=== PATIENT | female | born 1955 | race Caucasian/White ===

== ENCOUNTER 2017-12-16 09:33 | Emergency (ER) | payer OTHER ==
[2017-12-16] MEDS ORDERED: HYDROcodone/Acetaminophen 5/325 mg Tablet ONE ×2 (09:52→09:57)
--- NOTE | 2017-12-16 10:36 | RAD ---
THREE VIEWS OF THE RIGHT WRIST: DATE: 12/16/17. COMPARISON: None. HISTORY: Fall last night, wrist fracture. FINDINGS: There is an impacted fracture of the distal right radius. The patient is comminuted and the distal f racture fragment is displaced posteriorly by 7 mm. No associated ulnar fracture. No evidence for di slocation. Age-indeterminate fracture also noted at the base of the 5th metacarpal. IMPRESSION: 1. Comminuted impacted displaced fracture of the distal right radius. 2. Age-indeterminate, probably remote, fracture at the base of the 5th metacarpal. POS: [facility]
== END 2017-12-16 10:31 | disposition home or self-care (01) ==
LOC: ERS 09:33
DX: S52.501A Unspecified fracture of the lower end of right radius, initial encounter for closed fracture (principal); E03.9 Hypothyroidism, unspecified; I10 Essential (primary) hypertension; J45.909 Unspecified asthma, uncomplicated; Z79.51 Long term (current) use of inhaled steroids; Z79.899 Other long term (current) drug therapy; W19.XXXA Unspecified fall, initial encounter
CPT/HCPCS: 29125

== ENCOUNTER 2017-12-21 06:01 | Day surgery (SDC) | payer OTHER ==
[2017-12-20 12:09] VITALS: BMI 45.7
[2017-12-21] MEDS ORDERED: Lidocaine 1% (PF) 30 ML VIAL ONE (06:19)
[2017-12-21] MEDS ORDERED: Fentanyl 100 MCG/2 ML VIAL ONE ×2 (06:19→09:39)
[2017-12-21] MEDS ORDERED: Midazolam HCl 2 mg/2 ml Vial ONE (06:19)
[2017-12-21] MEDS ORDERED: CEFAZOLIN/Water 2 GM/20 ML SYRINGE ONE (06:47)
[2017-12-21] MEDS ORDERED: Ondansetron HCl/PF 4 MG/2 ML Vial IVP PRN (07:15)
[2017-12-21] MEDS ORDERED: Zolpidem Tartrate 5 MG TAB PO PRN (07:15)
[2017-12-21] MEDS ORDERED: Ropivacaine 0.2% 550 ML 550 ML NERVE BLCK SCH (07:15)
[2017-12-21] MEDS ORDERED: Promethazine HCl 25 MG/ML VIAL IM PRN (07:15)
[2017-12-21] MEDS ORDERED: Meperidine HCl/PF 25 MG/ML VIAL ONE (08:59)
--- NOTE | 2017-12-21 09:18 | RAD ---
INTRAOPERATIVE FLUOROSCOPIC IMAGES RIGHT WRIST: 12/21/2017 HISTORY: Right wrist fracture. Internal fixation. COMPARISON: 12/16/2017 FINDINGS: Intraoperative fluoroscopy was provided for Dr. Barbosa. Image demonstrates a volar plate and screw s transfixing a distal right radial metaphyseal fracture, with improvement in alignment of fracture f ragments. FLUOROSCOPY TIME: 17.9 seconds. TOTAL DOSE: 0.38 mGy IMPRESSION: Internal fixation of distal right radial metaphyseal fracture. Correlation with intraoperative findings is recommended. POS: [facility]
[2017-12-21] MEDS ORDERED: Ropivacaine 0.2% HCl/PF (40 MG/20 ML VIAL) ONE (09:26)
[2017-12-21] MEDS ORDERED: Ropivacaine 0.5% HCl/PF (150 MG/30 ML VIAL) ONE ×2 (09:26→10:16)
[2017-12-21] MEDS ORDERED: Dexamethasone 20 MG/5 ML VIAL ONE (09:43)
[2017-12-21] MEDS ORDERED: PROPOFOL 200 MG/20 ML VIAL ONE (09:43)
[2017-12-21] MEDS ORDERED: Ondansetron HCl/PF 4 MG/2 ML Vial ONE (09:43)
[2017-12-21] MEDS ORDERED: Ketorolac Tromethamine 30 MG/ML VIAL ONE (09:43)
--- NOTE | 2017-12-21 10:44 | OP ---
DATE OF SURGERY: 12/20/2017 PREOPERATIVE DIAGNOSIS: Right extraarticular distal radius fracture (less than 3 parts). POSTOPERATIVE DIAGNOSIS: Right extraarticular distal radius fracture (less than 3 parts). SURGICAL PROCEDURE: Open reduction internal fixation right distal radius. ANESTHESIA: General. SURGEON: Sebastian Barbosa M.D. [employer] COUNTERPERSON: CAROL Thakkar. TOURNIQUET TIME: Approximately 45 minutes at 250 mmHg. IMPLANTS: Synthes 2.4 mm variable angle LCP 2 column volar distal radius plate. COMPLICATIONS: None. DRAINS: None. SPECIMEN: None. OUTCOME: Near anatomic alignment. INDICATIONS: The patient is a 62-year-old lady, status post fall on outstretched hand sustaining a d isplaced right distal radius fracture. The patient's fracture was still dorsally displaced and angul ated and there is dorsal comminution. After discussion with patient including risks and benefits, we decided to proceed with an attempt at closed reduction with possible pinning versus open reduction i nternal fixation with plate stabilization if her fracture is found to be unstable. Informed consent has been obtained. I believe all questions answered. DESCRIPTION OF PROCEDURE: The patient was brought to the operating room and a timeout was performed followed by induction of general anesthesia. Next, a closed reduction maneuver was performed. This resulted in near anatomic alignment; however, the fracture was found to be very unstable due to the d orsal comminution. As such, it was opted to proceed with open reduction internal fixation. A steril e prep and drape was then performed of the right upper extremity. The limb was then exsanguinated wi th Esmarch bandage, tourniquet inflated to 250 mmHg. A volar radial skin incision was made. Dissect ion was then carried between the flexor carpi radialis and brachioradialis taking care to identify an d reflect the neurovascular bundle to the radial side of the forearm. The pronator quadratus was the n encountered. This was released off of the radial border of the distal radius and reflected to the midline. At this point, the fracture could be clearly visualized. An elevator was used just to free soft tissue from the fracture gap and then the fracture was reduced and held in place provisionally with a K-wire passed from the tip of the radial styloid obliquely across the fracture and into the mo re proximal radial diaphysis. Next, a Synthes 2.4 mm variable angle LCP volar radial plate was appli ed to the volar cortex of the radius. This was then held in place once appropriately positioned with a cortical screw in the longitudinal limb of the plate. AP lateral C-arm images were then obtained to confirm appropriate positioning of the hardware and reduction of the fracture. Next, three lockin g screws were passed through the horizontal limb of the plate in standard fashion and then two additi onal cortical screws placed in the longitudinal limb of the plate securely fixing the plate to the di aphysis of the radius and stabilizing the distal radial metaphyseal fragment. At this point, final A P, lateral C-arm images were taken and saved for the patient's permanent medical record. The wound t hen irrigated with bulb syringe and closed in layers with 2-0 Vicryl followed by 3-0 nylon. A Xerofo rm gauze, Webril, and sugar tong fiberglass splint was applied to the arm. Tourniquet was let down a t completion of dressing, and then the patient was transferred to recovery room in stable condition. There were no complications and she tolerated the procedure well.
== END 2017-12-21 12:23 | disposition home or self-care (01) ==
LOC: SDC 06:01
PROVIDERS: ATTEND Orthopaedic Surgery
PROC: 0PSH04Z Reposition Right Radius with Internal Fixation Device, Open Approach (ICD-10-PCS; principal; 2017-12-21)
DX: S52.551A Other extraarticular fracture of lower end of right radius, initial encounter for closed fracture (principal); I10 Essential (primary) hypertension; Z79.899 Other long term (current) drug therapy; W18.30XA Fall on same level, unspecified, initial encounter
CPT/HCPCS: 76001; 96374; A4306; C1713; J1100; J1885; J2001; J2175; J2250; J2405; J2704; J2795; J3010

== ENCOUNTER 2018-07-05 23:25 | Inpatient (IN) | payer OTHER, BC ==
[~2018-07-05 23:25] MED LIST: ISOVUE-370 76%-LOCM 1 ML ONE
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
[2018-07-06 00:03] LABS: #Basophils 0.1 thou/uL (0.0-0.2); #Eosinphils 0.2 thou/uL (0.0-0.7); #Lymphocytes 1.6 thou/uL (1.20-3.40); #Monocytes 0.9 thou/uL (0.11-0.59); #Neutrophils 11.5 thou/uL (1.40-6.50); %Basophils 0.5 % (0.0-1.0); %Eosinophils 1.5 % (0.0-10.0); %Lymphocytes 11.3 % (21.0-51.0); %Monocytes 6.3 % (0.0-10.0); %Neutrophils 80.4 % (42.0-75.0); Hemoglobin 13.7 g/dL (12.0-16.0); Mean Corpuscular HGB CONC 33.2 g/dL (32.0-36.0); Mean Corpuscular Hemoglobin 33.3 pg (27.0-31.0); Mean Platelet Volume 7.1 fL (7.4-10.4); Platelet Count 318 thou/uL (130-400); RBC Distribution Width 12.3 % (11.5-14.5); White Blood Cell (WBC) Count 14.3 thou/uL (4.8-10.8)
--- NOTE | 2018-07-06 00:04 | RAD ---
RIGHT HAND: 07/05/18 Three views. HISTORY: Trauma. There is a fracture involving the base of the third metacarpal. There is deformity of the distal fift h metacarpal which suggests deformity from old fracture. Prior internal fixation of the distal radius. IMPRESSION: Acute fracture involving the base of the third metacarpal. Deformity of the distal fifth metacarpal s uggests old injury. POS: [facility]
--- NOTE | 2018-07-06 00:05 | RAD ---
RIGHT HUMERUS: 07/05/18 Two views. HISTORY: Trauma. FINDINGS/IMPRESSION: Degenerative changes at the shoulder. No acute fracture or dislocation identified. POS: [facility]
--- NOTE | 2018-07-06 00:06 | RAD ---
RIGHT FEMUR: 07/05/18 Portable views. HISTORY: Trauma. FINDINGS/IMPRESSION: Degenerative changes at the hip. No acute fracture identified. POS: [facility]
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
--- NOTE | 2018-07-06 00:09 | RAD ---
RIGHT WRIST: 07/05/18 Three views. HISTORY: Trauma. Acute fracture of the base of the third metacarpal. Carpals appear intact. Prior internal fixation of the distal radius. Deformity of the distal fifth metacarpal may represent old fracture. IMPRESSION: Fracture base of third metacarpal. POS: [facility]
[2018-07-06 00:10] LABS: INR-International Normal Ratio 0.9; PTT 26.9 SEC (22.9-36.1); Prothrombin Time 12.7 SEC (12.0-14.7)
[2018-07-06 00:24] LABS: ALT (SGPT) 25 U/L (8-55); AST (SGOT) 32 U/L (5-34); Albumin 3.9 g/dL (3.4-4.8); Alkaline Phosphatase 116 U/L (40-150); Anion Gap 17 mmol/L (10-20); BUN (Urea Nitrogen) 16 mg/dL (9.8-20.1); Bilirubin, Total 0.2 mg/dL (0.2-1.2); Calc. Creatinine Clearance 0 mL/min (70-130); Calcium 9.2 mg/dL (7.8-10.44); Carbon Dioxide 23 mmol/L (23-31); Chloride 105 mmol/L (98-107); Estimated GFR-MDRD 80; Globulin 3.2 g/dL (2.4-3.5); Glucose 142 mg/dL (80-115); Lipase 50 U/L (8-78); Potassium 3.4 mmol/L (3.5-5.1); Protein, Total 7.1 g/dL (6.0-8.3); Sodium 142 mmol/L (136-145)
[2018-07-06] MEDS ORDERED: Lidocaine 1% (PF) 30 ML VIAL ONE (00:32)
[2018-07-06] MEDS ORDERED: cefTRIAXone\\ROCEPHIN 1 GM VIAL ONE (00:32)
[2018-07-06] MEDS ORDERED: Adacel (T-DAP) 0.5 ML SYRINGE ONE (00:32)
[2018-07-06] MEDS ORDERED: Morphine 4 MG/ML VIAL ONE ×2 (00:32→01:40)
[2018-07-06] MEDS ORDERED: CEFAZOLIN 1 GM VIAL ONE (00:34)
[2018-07-06] MEDS ORDERED: Oxymetazoline HCl 0.05% ( 15 ML ) ONE (01:16)
[2018-07-06] MEDS ORDERED: Ondansetron ODT 4 MG TAB PO PRN (01:19)
[2018-07-06] MEDS ORDERED: Dextrose 50% Abboject 50 ML SYRINGE SLOW IVP PRN (01:19)
[2018-07-06] MEDS ORDERED: Dextrose 5% in Water 1,000 ML IV PRN (01:19)
[2018-07-06] MEDS ORDERED: Cyclobenzaprine 10 MG TAB PO PRN (01:26)
[2018-07-06] MEDS ORDERED: Ibuprofen 800 MG TAB PO SCH (01:45)
[2018-07-06] MEDS ORDERED: Acetaminophen 1,000 MG in Premix Bag 1 BAG IVPB SCH (01:45)
[2018-07-06 02:55] LABS: Bilirubin Negative (Negative); Blood, Urine Small (Negative); Clarity CLEAR (Clear); Glucose, Urine (Dipstick) Negative (Negative); Leukocyte Negative (Negative); Nitrite Negative (Negative); Protein, Urine (Dipstick) Negative (Neg-Trace); Urobilinogen 0.2 mg/dL (0.2-1.0)
[2018-07-06 02:57] LABS: Bacteria/HPF None Seen HPF (None Seen); Hyaline Casts/LPF 4-6 HYALINE CAST LPF (0-3 Hyaline); RBC/HPF 0-3 HPF (0-3); Squamous Epithelial 0-3 HPF (0-3); WBC/HPF 0-3 HPF (0-3)
[2018-07-06 03:13] LABS: Specific Gravity, Urine 1.046 (1.002-1.036)
[2018-07-06 03:36] LABS: #Basophils 0.1 thou/uL (0.0-0.2); #Eosinphils 0.1 thou/uL (0.0-0.7); #Lymphocytes 1.1 thou/uL (1.20-3.40); #Monocytes 1.1 thou/uL (0.11-0.59); #Neutrophils 10.2 thou/uL (1.40-6.50); %Basophils 0.4 % (0.0-1.0); %Eosinophils 0.5 % (0.0-10.0); Hemoglobin 12.1 g/dL (12.0-16.0); Mean Corpuscular HGB CONC 33.2 g/dL (32.0-36.0); Mean Corpuscular Hemoglobin 33.3 pg (27.0-31.0); Mean Platelet Volume 7.1 fL (7.4-10.4); Platelet Count 293 thou/uL (130-400); RBC Distribution Width 12.3 % (11.5-14.5); Red Blood Cell (RBC) Count 3.65 mill/uL (4.20-5.40); White Blood Cell (WBC) Count 12.6 thou/uL (4.8-10.8)
[2018-07-06 03:57] LABS: ALT (SGPT) 22 U/L (8-55); AST (SGOT) 31 U/L (5-34); Albumin 3.4 g/dL (3.4-4.8); Alkaline Phosphatase 92 U/L (40-150); Anion Gap 16 mmol/L (10-20); BUN (Urea Nitrogen) 14 mg/dL (9.8-20.1); Bilirubin, Total 0.3 mg/dL (0.2-1.2); Calc. Creatinine Clearance 0 mL/min (70-130); Calcium 8.4 mg/dL (7.8-10.44); Carbon Dioxide 21 mmol/L (23-31); Chloride 108 mmol/L (98-107); Estimated GFR-MDRD Greater than 90; Globulin 2.7 g/dL (2.4-3.5); Glucose 138 mg/dL (80-115); Potassium 3.4 mmol/L (3.5-5.1); Protein, Total 6.1 g/dL (6.0-8.3); Sodium 142 mmol/L (136-145)
[2018-07-06] MEDS: Acetaminophen 500 MG TAB PO SCH ×4 (04:01→18:23)
[2018-07-06] MEDS: traMADol HCl 50 MG TAB PO SCH ×5 (04:02→18:23)
[2018-07-06] MEDS: Morphine 4 MG/ML VIAL SLOW IVP PRN (04:20)
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
[2018-07-06] MEDS: Potassium Chloride 20 MEQ in Premix Bag 1 BAG IVPB SCH ×2 (05:45→08:03)
[2018-07-06] MEDS: Mometasone/Formoterol 120 PUFF INHALER INH SCH ×2 (06:52→18:54)
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
[2018-07-06 08:17] VITALS: BMI 47.8
[2018-07-06 08:36] LABS: Magnesium 1.7 mg/dL (1.6-2.6); Phosphorus 3.2 mg/dL (2.3-4.7)
[2018-07-06] MEDS: Polyethylene Glycol 3350 17 GM Packet PO SCH (08:44)
[2018-07-06] MEDS: Cyclobenzaprine 10 MG TAB PO SCH ×3 (08:45→20:36)
[2018-07-06] MEDS: Gabapentin 300 MG CAP PO SCH ×3 (08:45→20:36)
[2018-07-06] MEDS: Senokot S 8.6-50 MG TAB PO SCH ×2 (08:45→20:35)
--- NOTE | 2018-07-06 08:53 | RAD ---
LEFT HAND 3 VIEWS: Date: 07/05/18 INDICATION: Left hand pain. COMPARISON: None. IMPRESSION: There is diffuse osteopenia. There is moderate first CMC osteoarthrosis. Scattered IP osteoarthrosis. No displaced fracture is evident. There is soft tissue swelling of the hand and wrist. POS: [facility]
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
[2018-07-06] MEDS: hydrALAZINE 20 MG/ML VIAL SLOW IVP PRN (20:38)
[2018-07-07] MEDS: Morphine 4 MG/ML VIAL SLOW IVP PRN ×3 (00:10→21:43)
[2018-07-07] MEDS: Acetaminophen 500 MG TAB PO SCH ×4 (01:50→18:51)
[2018-07-07] MEDS: traMADol HCl 50 MG TAB PO SCH ×4 (01:50→18:52)
[2018-07-07 05:16] LABS: Magnesium 2.1 mg/dL (1.6-2.6); Phosphorus 3.5 mg/dL (2.3-4.7)
[2018-07-07] MEDS: Mometasone/Formoterol 120 PUFF INHALER INH SCH ×2 (06:34→18:34)
[2018-07-07] MEDS: hydrALAZINE 20 MG/ML VIAL SLOW IVP PRN (06:35)
[2018-07-07] MEDS ORDERED: Albuterol Sulfate 2.5 mg/3 ml Neb NEB PRN (07:30)
[2018-07-07] MEDS: Losartan 25 MG TAB PO SCH (08:46)
[2018-07-07] MEDS: Gabapentin 300 MG CAP PO SCH ×3 (08:47→21:44)
[2018-07-07] MEDS: Cyclobenzaprine 10 MG TAB PO SCH ×3 (08:47→21:44)
[2018-07-07] MEDS: Polyethylene Glycol 3350 17 GM Packet PO SCH (08:47)
[2018-07-07] MEDS: Senokot S 8.6-50 MG TAB PO SCH ×2 (08:47→21:44)
[2018-07-07] MEDS ORDERED: Potassium Phosphate 30 MMOL in Sodium Chloride 0.9% 500 ML IVPB SCH (15:00)
[2018-07-07] MEDS ORDERED: Magnesium 2 GM/50 ML 2 GM in Premix Bag 1 BAG IVPB SCH (15:15)
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
[2018-07-08] MEDS: traMADol HCl 50 MG TAB PO SCH ×4 (00:35→18:33)
[2018-07-08] MEDS: Acetaminophen 500 MG TAB PO SCH ×4 (00:35→18:33)
[2018-07-08] MEDS: Morphine 4 MG/ML VIAL SLOW IVP PRN (03:58)
[2018-07-08 05:33] LABS: #Eosinphils 0.3 thou/uL (0.0-0.7); #Lymphocytes 0.9 thou/uL (1.20-3.40); #Monocytes 0.6 thou/uL (0.11-0.59); #Neutrophils 5.8 thou/uL (1.40-6.50); %Basophils 0.5 % (0.0-1.0); %Eosinophils 4.1 % (0.0-10.0); %Lymphocytes 11.4 % (21.0-51.0); %Monocytes 7.7 % (0.0-10.0); %Neutrophils 76.3 % (42.0-75.0); Hemoglobin 11.6 g/dL (12.0-16.0); Mean Corpuscular Hemoglobin 33.3 pg (27.0-31.0); Mean Platelet Volume 7.4 fL (7.4-10.4); Platelet Count 241 thou/uL (130-400); RBC Distribution Width 12.4 % (11.5-14.5); Red Blood Cell (RBC) Count 3.47 mill/uL (4.20-5.40); White Blood Cell (WBC) Count 7.6 thou/uL (4.8-10.8)
[2018-07-08 06:02] LABS: Anion Gap 10 mmol/L (10-20); BUN (Urea Nitrogen) 12 mg/dL (9.8-20.1); Calc. Creatinine Clearance 165 mL/min (70-130); Calcium 8.5 mg/dL (7.8-10.44); Carbon Dioxide 28 mmol/L (23-31); Chloride 103 mmol/L (98-107); Estimated GFR-MDRD Greater than 90; Glucose 101 mg/dL (80-115); Magnesium 2.3 mg/dL (1.6-2.6); Phosphorus 3.6 mg/dL (2.3-4.7); Potassium 4.4 mmol/L (3.5-5.1); Sodium 137 mmol/L (136-145)
[2018-07-08] MEDS: Levothyroxine 175 MCG TAB PO SCH (06:41)
[2018-07-08] MEDS: Mometasone/Formoterol 120 PUFF INHALER INH SCH ×2 (06:51→19:25)
[2018-07-08] MEDS: Senokot S 8.6-50 MG TAB PO SCH ×2 (08:23→20:12)
[2018-07-08] MEDS: Losartan 25 MG TAB PO SCH (08:24)
[2018-07-08] MEDS: Gabapentin 300 MG CAP PO SCH ×3 (08:24→20:11)
[2018-07-08] MEDS: Cyclobenzaprine 10 MG TAB PO SCH ×3 (08:24→20:12)
[2018-07-08] MEDS: Polyethylene Glycol 3350 17 GM Packet PO SCH (08:30)
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
[2018-07-08] MEDS: Morphine 2 MG/ML SYRINGE SLOW IVP PRN ×2 (11:20→17:21)
[2018-07-08] MEDS: Enoxaparin Sodium 40 MG/0.4 ML SYRINGE SC SCH ×2 (11:21→20:12)
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
[2018-07-09] MEDS: traMADol HCl 50 MG TAB PO SCH ×4 (02:30→20:06)
[2018-07-09] MEDS: Acetaminophen 500 MG TAB PO SCH ×4 (02:30→20:06)
[2018-07-09] MEDS: Morphine 2 MG/ML SYRINGE SLOW IVP PRN ×2 (06:15→22:55)
[2018-07-09] MEDS: Levothyroxine 175 MCG TAB PO SCH (06:16)
[2018-07-09] MEDS: Mometasone/Formoterol 120 PUFF INHALER INH SCH ×2 (06:55→18:08)
[2018-07-09] MEDS: Enoxaparin Sodium 40 MG/0.4 ML SYRINGE SC SCH ×2 (09:19→20:08)
[2018-07-09] MEDS: Losartan 25 MG TAB PO SCH (09:21)
[2018-07-09] MEDS: Cyclobenzaprine 10 MG TAB PO SCH ×3 (09:21→20:05)
[2018-07-09] MEDS: Senokot S 8.6-50 MG TAB PO SCH ×2 (09:22→20:05)
[2018-07-09] MEDS: Gabapentin 300 MG CAP PO SCH ×3 (09:22→20:05)
[2018-07-09] MEDS: Polyethylene Glycol 3350 17 GM Packet PO SCH (13:48)
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
[2018-07-10] MEDS: traMADol HCl 50 MG TAB PO SCH ×4 (02:22→20:33)
[2018-07-10] MEDS: Acetaminophen 500 MG TAB PO SCH ×4 (02:22→20:33)
[2018-07-10] MEDS: Mometasone/Formoterol 120 PUFF INHALER INH SCH ×2 (06:38→18:56)
[2018-07-10] MEDS: Levothyroxine 175 MCG TAB PO SCH (06:42)
[2018-07-10] MEDS: Polyethylene Glycol 3350 17 GM Packet PO SCH (08:00)
[2018-07-10] MEDS: Enoxaparin Sodium 40 MG/0.4 ML SYRINGE SC SCH ×2 (08:01→20:32)
[2018-07-10] MEDS: Senokot S 8.6-50 MG TAB PO SCH ×2 (08:02→20:32)
[2018-07-10] MEDS: Gabapentin 300 MG CAP PO SCH ×3 (08:03→20:32)
[2018-07-10] MEDS: Cyclobenzaprine 10 MG TAB PO SCH ×3 (08:03→20:32)
[2018-07-10] MEDS: Losartan 25 MG TAB PO SCH (13:46)
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
[2018-07-10] MEDS: Hydrocortisone Sod Succ/PF 100 mg/2 ml Vial IVP SCH ×2 (13:58→15:04)
[2018-07-10] MEDS: Hydrocortisone 10 mg Tablet PO SCH (20:34)
[2018-07-11] MEDS: Acetaminophen 500 MG TAB PO SCH ×4 (00:47→18:28)
[2018-07-11] MEDS: traMADol HCl 50 MG TAB PO SCH ×4 (00:48→18:29)
[2018-07-11] MEDS: Hydrocortisone 10 mg Tablet PO SCH ×3 (03:24→20:05)
[2018-07-11] MEDS: Levothyroxine 175 MCG TAB PO SCH (06:09)
[2018-07-11 06:17] LABS: #Eosinphils 0.1 thou/uL (0.0-0.7); #Lymphocytes 0.7 thou/uL (1.20-3.40); #Monocytes 0.6 thou/uL (0.11-0.59); #Neutrophils 5.6 thou/uL (1.40-6.50); %Basophils 0.5 % (0.0-1.0); %Eosinophils 1.1 % (0.0-10.0); %Lymphocytes 9.8 % (21.0-51.0); %Monocytes 7.9 % (0.0-10.0); %Neutrophils 80.7 % (42.0-75.0); Hemoglobin 10.4 g/dL (12.0-16.0); Mean Corpuscular HGB CONC 32.4 g/dL (32.0-36.0); Mean Corpuscular Hemoglobin 32.2 pg (27.0-31.0); Mean Corpuscular Volume 99.4 fL (78.0-98.0); Mean Platelet Volume 7.1 fL (7.4-10.4); Platelet Count 296 thou/uL (130-400); RBC Distribution Width 12.1 % (11.5-14.5); Red Blood Cell (RBC) Count 3.23 mill/uL (4.20-5.40)
[2018-07-11] MEDS: Mometasone/Formoterol 120 PUFF INHALER INH SCH ×2 (06:26→18:41)
[2018-07-11 06:28] LABS: Anion Gap 11 mmol/L (10-20); BUN (Urea Nitrogen) 10 mg/dL (9.8-20.1); Calc. Creatinine Clearance 185 mL/min (70-130); Calcium 8.9 mg/dL (7.8-10.44); Carbon Dioxide 30 mmol/L (23-31); Chloride 102 mmol/L (98-107); Estimated GFR-MDRD Greater than 90; Glucose 108 mg/dL (80-115); Magnesium 2.2 mg/dL (1.6-2.6); Phosphorus 3.5 mg/dL (2.3-4.7); Potassium 4.2 mmol/L (3.5-5.1); Sodium 139 mmol/L (136-145)
[2018-07-11] MEDS: Losartan 25 MG TAB PO SCH (08:08)
[2018-07-11] MEDS: Cyclobenzaprine 10 MG TAB PO SCH ×3 (08:08→20:05)
[2018-07-11] MEDS: Gabapentin 300 MG CAP PO SCH ×3 (08:08→20:05)
[2018-07-11] MEDS: Enoxaparin Sodium 40 MG/0.4 ML SYRINGE SC SCH ×2 (08:08→20:05)
[2018-07-11] MEDS: Polyethylene Glycol 3350 17 GM Packet PO SCH (09:46)
[2018-07-11] MEDS: Senokot S 8.6-50 MG TAB PO SCH ×2 (09:46→20:05)
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
[2018-07-11] MEDS: Melatonin 3 MG TAB PO SCH (20:05)
[2018-07-12] MEDS: Acetaminophen 500 MG TAB PO SCH ×4 (00:32→18:08)
[2018-07-12] MEDS: traMADol HCl 50 MG TAB PO SCH ×4 (00:33→18:09)
[2018-07-12] MEDS: Hydrocortisone 10 mg Tablet PO SCH ×2 (03:29→13:39)
[2018-07-12] MEDS: Levothyroxine 175 MCG TAB PO SCH (06:23)
[2018-07-12] MEDS: Mometasone/Formoterol 120 PUFF INHALER INH SCH ×2 (08:28→20:11)
[2018-07-12] MEDS: Gabapentin 300 MG CAP PO SCH ×3 (08:49→21:58)
[2018-07-12] MEDS: Losartan 25 MG TAB PO SCH (08:49)
[2018-07-12] MEDS: Senokot S 8.6-50 MG TAB PO SCH ×2 (08:49→20:12)
[2018-07-12] MEDS: Enoxaparin Sodium 40 MG/0.4 ML SYRINGE SC SCH ×2 (08:49→21:58)
[2018-07-12] MEDS: Cyclobenzaprine 10 MG TAB PO SCH ×3 (08:49→21:58)
[2018-07-12] MEDS: Polyethylene Glycol 3350 17 GM Packet PO SCH (08:50)
[2018-07-12] MEDS ORDERED: Hydrocortisone 10 mg Tablet PO SCH (14:00)
[2018-07-12] MEDS: Melatonin 3 MG TAB PO SCH (21:58)
[2018-07-13] MEDS: Acetaminophen 500 MG TAB PO SCH ×4 (01:15→19:45)
[2018-07-13] MEDS: traMADol HCl 50 MG TAB PO SCH ×4 (01:15→19:45)
[2018-07-13] MEDS: Levothyroxine 175 MCG TAB PO SCH (06:32)
[2018-07-13] MEDS: Mometasone/Formoterol 120 PUFF INHALER INH SCH ×2 (07:17→19:35)
[2018-07-13] MEDS: Cyclobenzaprine 10 MG TAB PO SCH ×3 (09:22→20:22)
[2018-07-13] MEDS: Losartan 25 MG TAB PO SCH (09:23)
[2018-07-13] MEDS: Gabapentin 300 MG CAP PO SCH ×3 (09:23→20:23)
[2018-07-13] MEDS: Enoxaparin Sodium 40 MG/0.4 ML SYRINGE SC SCH ×2 (10:50→20:22)
[2018-07-13] MEDS: Polyethylene Glycol 3350 17 GM Packet PO SCH (10:57)
[2018-07-13] MEDS: Senokot S 8.6-50 MG TAB PO SCH ×2 (10:57→20:23)
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
[2018-07-13] MEDS: Melatonin 3 MG TAB PO SCH (20:23)
[2018-07-14] MEDS: traMADol HCl 50 MG TAB PO SCH ×5 (02:47→20:33)
[2018-07-14] MEDS: Acetaminophen 500 MG TAB PO SCH ×5 (02:47→20:33)
[2018-07-14] MEDS: Levothyroxine 175 MCG TAB PO SCH (05:25)
[2018-07-14] MEDS: Mometasone/Formoterol 120 PUFF INHALER INH SCH ×2 (06:41→19:52)
[2018-07-14] MEDS: Senokot S 8.6-50 MG TAB PO SCH ×2 (08:44→20:35)
[2018-07-14] MEDS: Gabapentin 300 MG CAP PO SCH ×3 (08:45→20:34)
[2018-07-14] MEDS: Losartan 25 MG TAB PO SCH (08:45)
[2018-07-14] MEDS: Cyclobenzaprine 10 MG TAB PO SCH ×3 (08:45→20:34)
[2018-07-14] MEDS: Polyethylene Glycol 3350 17 GM Packet PO SCH (08:46)
[2018-07-14] MEDS: Enoxaparin Sodium 40 MG/0.4 ML SYRINGE SC SCH ×2 (08:46→20:34)
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
[2018-07-14] MEDS: Melatonin 3 MG TAB PO SCH (20:35)
[2018-07-15] MEDS: Acetaminophen 500 MG TAB PO SCH ×3 (01:48→13:38)
[2018-07-15] MEDS: traMADol HCl 50 MG TAB PO SCH ×3 (01:48→13:39)
[2018-07-15] MEDS: Levothyroxine 175 MCG TAB PO SCH (05:41)
[2018-07-15] MEDS: Mometasone/Formoterol 120 PUFF INHALER INH SCH (06:45)
[2018-07-15] MEDS: Senokot S 8.6-50 MG TAB PO SCH (08:25)
[2018-07-15] MEDS: Losartan 25 MG TAB PO SCH (08:26)
[2018-07-15] MEDS: Cyclobenzaprine 10 MG TAB PO SCH (08:26)
[2018-07-15] MEDS: Gabapentin 300 MG CAP PO SCH (08:26)
[2018-07-15] MEDS: Enoxaparin Sodium 40 MG/0.4 ML SYRINGE SC SCH (08:28)
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
[2018-07-15] MEDS: Polyethylene Glycol 3350 17 GM Packet PO SCH (09:11)
[2018-07-15 14:34] VITALS: BP 132/84; TEMP 97.5
== END 2018-07-15 14:00 | disposition swing bed (61) | DRG 86 ==
LOC: ERS 23:25 → SURG A 07-06 01:19 → OBSVTOIN 07-06 01:19
PROVIDERS: ADMIT Specialist; ATTEND Specialist
PROC: 0HQMXZZ Repair Right Foot Skin, External Approach (ICD-10-PCS; principal; 2018-07-06)
DX: S02.113A Unspecified occipital condyle fracture, initial encounter for closed fracture (principal); S22.088A Other fracture of T11-T12 vertebra, initial encounter for closed fracture; S32.028A Other fracture of second lumbar vertebra, initial encounter for closed fracture; S32.038A Other fracture of third lumbar vertebra, initial encounter for closed fracture; S22.41XA Multiple fractures of ribs, right side, initial encounter for closed fracture; Z68.42 Body mass index [BMI] 45.0-49.9, adult; E27.40 Unspecified adrenocortical insufficiency; S00.12XA Contusion of left eyelid and periocular area, initial encounter; S41.112A Laceration without foreign body of left upper arm, initial encounter; S91.311A Laceration without foreign body, right foot, initial encounter; S62.312A Displaced fracture of base of third metacarpal bone, right hand, initial encounter for closed fracture; R40.2412 Glasgow coma scale score 13-15, at arrival to emergency department; R90.89 Other abnormal findings on diagnostic imaging of central nervous system; J45.909 Unspecified asthma, uncomplicated; I10 Essential (primary) hypertension; E03.9 Hypothyroidism, unspecified; E66.9 Obesity, unspecified; E78.5 Hyperlipidemia, unspecified; V89.2XXA Person injured in unspecified motor-vehicle accident, traffic, initial encounter; Y92.410 Unspecified street and highway as the place of occurrence of the external cause
CPT/HCPCS: 12002; 26600; 36415; 70450; 71045; 71260; 72125; 74177; 80048; 80053; 81003; 81015; 82533; 83690; 83735; 84100; 85025; 85610; 85730; 86850; 86900; 86901; 90471; 90715; 93005; 94640; 94760; 96365; 96374; 96375; 96376; G0390; J0131; J0360; J0690; J0696; J1650; J1720; J2001; J2270; J3475; J3480; J7050; J7620; Q0162; Q9966

== ENCOUNTER 2018-08-13 09:51 | Outpatient (CLI) | payer BC ==
--- NOTE | 2018-08-13 11:42 | MRI ---
MRI Brain W WO Con: 08/13/2018 12:00 AM CLINICAL HISTORY: Benign neoplasm of brain. COMPARISON: CT head July 05, 2018 FINDINGS: Extra axial spaces: There is a lobular shaped avidly enhancing, mixed signal intensity mass which ove rlies the medial aspect of the right parietal lobe, with a broad dural base, and dural tail, which abuts the medial aspect of the left parietal lobe with internal T1 hyperintensity correlating to calc ium. Associated internal susceptibility is also correlative to the calcification. Mass measures 4 cm AP by 3.5 cm transverse by 4 cm craniocaudal. Acute infarction: None. Ventricular system: Normal in size and morphology for the patient's age. Basal cisterns: Normal. Cerebral parenchyma: Microvascular ischemic changes. Minimal vasogenic edema about the periphery of t he above-described extra-axial mass within the posterior cranial fossa Midline shift: None of significance. Cerebellum: Normal. Brainstem: Normal. Paranasal sinuses:Scattered mucosal thickening. Intraaxial Enhancement: None IMPRESSION:Enhancing partially calcified extra-axial mass of the intracranial fossa consistent with m eningioma. Slight surrounding vasogenic edema noted. Transcribed Date/Time: 08/13/2018 11:55 AM
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
[2018-08-13] MEDS ORDERED: Gadobenate Dimeglumine 529 MG/1 ML (20ML VIAL) ONE (13:09)
== END 2018-08-13 09:52 | disposition home or self-care (01) ==
LOC: BICMRI 09:51
PROVIDERS: ATTEND Neurological Surgery
DX: S02.113 Unspecified occipital condyle fracture (principal); D33.2 Benign neoplasm of brain, unspecified; S16.1XXA Strain of muscle, fascia and tendon at neck level, initial encounter; M47.812 Spondylosis without myelopathy or radiculopathy, cervical region
CPT/HCPCS: 70553; 72040; 82565; A9577

== ENCOUNTER 2019-02-27 06:10 | Inpatient (IN) | payer OTHER ==
[2019-02-27] MEDS ORDERED: Morphine 4 MG/ML VIAL ONE (06:37)
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
[2019-02-27] MEDS ORDERED: cefTRIAXone\\ROCEPHIN 1 GM in Sodium Chloride 0.9% 100 ML IVPB SCH (09:00)
[2019-02-27] MEDS ORDERED: Acetaminophen 500 MG TAB PO PRN (09:05)
[2019-02-27] MEDS ORDERED: Acetaminophen 500 MG TAB ONE (09:09)
[2019-02-27] MEDS ORDERED: Fioricet 325/50/40 mg Tablet PO PRN (09:09)
[2019-02-27] MEDS ORDERED: Acetaminophen 325 MG TAB ONE (09:15)
[2019-02-27] MEDS ORDERED: Acetaminophen 500 MG TAB PO SCH (09:15)
[2019-02-27] MEDS ORDERED: hydrALAZINE 20 MG/ML VIAL SLOW IVP PRN (09:24)
[2019-02-27] MEDS ORDERED: cloNIDine 0.1 MG TAB PO PRN (09:24)
[2019-02-27] MEDS ORDERED: Promethazine HCl 12.5 MG in Sodium Chloride 0.9% 50 ML IVPB PRN (09:24)
[2019-02-27] MEDS ORDERED: Ondansetron PF 4 MG/2 ML Vial IVP PRN (09:25)
--- NOTE | 2019-02-27 10:33 | MRI ---
Brain MRI with and without contrast: 02/27/2019 COMPARISON: 08/13/2018 HISTORY: Meningioma, headache, worsening edema noted on recent head CT TECHNIQUE: Multiplanar multisequence MR imaging of the brain obtained with and without contrast FINDINGS: The diffusion weighted imaging demonstrates no evidence for acute infarction. There is a lobulated posterior extra-axial mass, epicenter posterior to the right parieto-occipital l obe with prominent adjacent vasogenic edema medial to and anterior to the mass lesion. This vasogenic edema is new when compared to prior imaging. There is prominent new mass effect on the post erior horn and atrium of the right lateral ventricle. There is also new right to left midline shift measuring 7 mm. The mass measures approximately 4.1 x 4.5 x 4.2 cm, enlarged when compared to the farideh or study at which time it measured 3.6 x 4.4 x 4.2 cm. On the T1-weighted imaging precontrast the lesion is isointense. It demonstrates internal blooming artifact on the gradient echo imaging which c orrelates with internal calcification on CT and on the postcontrast imaging it demonstrates avid thick irregular rim enhancement with central hypoenhancement suggesting interval development of centr al necrosis. This lesion extends to the left of midline on either side of the posterior aspect of the interhemispheric fissure. The postcontrast imaging demonstrates no additional areas of abnormal enhancement. IMPRESSION: Interval enlargement of extra-axial mass posteriorly as detailed above. There is prominen t associated new vasogenic edema with significant new mass effect and associated right to left midline shift. Neurosurgical consultation advised. Dr. Whitney made aware at 10:30 AM 02/27/2019.
[2019-02-27] MEDS ORDERED: Loperamide HCl 2 MG CAP PO SCH (11:09)
[2019-02-27] MEDS ORDERED: Acetaminophen 325 MG TAB PO PRN (11:09)
[2019-02-27] MEDS: HYDROcodone/Acetaminophen 5/325 mg Tablet PO PRN ×2 (13:23→18:32)
[2019-02-27] MEDS: Dexamethasone 4 mg/ml Vial SLOW IVP SCH ×3 (13:25→21:13)
[2019-02-27] MEDS ORDERED: Magnevist 469MG/ML 20 ML VIAL ONE (13:49)
[2019-02-27 15:07] VITALS: BMI 46.3
[2019-02-27] MEDS: Morphine 2 MG/ML SYRINGE SLOW IVP PRN ×2 (15:12→19:04)
[2019-02-27] MEDS: metroNIDAZOLE 500 MG TAB PO SCH ×2 (15:12→21:13)
[2019-02-27] MEDS: Gabapentin 300 MG CAP PO SCH ×2 (15:12→21:13)
[2019-02-27] MEDS ORDERED: Mometasone/Formoterol 120 PUFF INHALER INH SCH (18:30)
[2019-02-27] MEDS: Mometasone/Formoterol 120 PUFF INHALER INH SCH (18:32)
[2019-02-27] MEDS ORDERED: Cipro 250 MG TAB PO SCH (20:00)
[2019-02-27] MEDS: Cipro 250 MG TAB PO SCH (21:13)
[2019-02-27] MEDS: Senokot S 8.6-50 MG TAB PO SCH (21:13)
[2019-02-27] MEDS: Acetaminophen 500 MG TAB PO PRN (21:18)
--- NOTE | 2019-02-27 22:48 | CON ---
DATE OF CONSULTATION: 02/27/2019 SUBJECTIVE: Ms. Siu is known to me from previous in-hospital evaluation of a midline parasagittal tumor felt to be meningioma. Plan was for conservative management with followup in 1 year. She was readmitted recently with symptoms of left-sided hemiparesis, headache and nausea. CT showed progressive vasogenic edema in the right hemisphere. The patient is currently in the MRI scan. IMPRESSION AND PLAN: The lesion is undoubtedly a meningioma given the extensive calcifications, but the progression of vasogenic edema, which is symptomatic will ultimately require surgical intervention for the tumor. For now, we will treat with Decadron and dismiss with plans for outpatient followup next week to decide on the timing for surgery. Job ID: [id number]
[2019-02-28] MEDS: Dexamethasone 4 mg/ml Vial SLOW IVP SCH ×2 (03:22→08:57)
[2019-02-28 03:41] LABS: Bacteria/HPF None Seen HPF (None Seen); Bilirubin Negative (Negative); Blood, Urine Negative (Negative); Clarity Clear (Clear); Glucose, Urine (Dipstick) Normal (Negative); Leukocyte Negative Leu/uL (Negative); Nitrite Negative (Negative); Protein, Urine (Dipstick) Negative (Neg-Trace); RBC/HPF 0-3 HPF (0-3); Squamous Epithelial 0-3 HPF (0-3); Urobilinogen Normal mg/dL (Less than 2); WBC/HPF 0-3 HPF (0-3)
[2019-02-28] MEDS ORDERED: Levothyroxine 150 MCG TAB PO SCH (06:00)
[2019-02-28] MEDS: Cipro 250 MG TAB PO SCH (06:11)
[2019-02-28] MEDS: HYDROcodone/Acetaminophen 5/325 mg Tablet PO PRN (06:14)
[2019-02-28] MEDS: Gabapentin 300 MG CAP PO SCH ×2 (08:33→08:35)
[2019-02-28] MEDS: Losartan/Hydrochlorothiazide 100 mg/25 mg Tablet PO SCH ×2 (08:33→08:34)
[2019-02-28] MEDS: Senokot S 8.6-50 MG TAB PO SCH (08:33)
[2019-02-28] MEDS: metroNIDAZOLE 500 MG TAB PO SCH (08:34)
[2019-02-28] MEDS: Mometasone/Formoterol 120 PUFF INHALER INH SCH (08:35)
[2019-02-28] MEDS: Acetaminophen 500 MG TAB PO PRN (08:55)
[2019-02-28] MEDS ORDERED: Saccharomyces boulardii 250 MG CAP PO SCH (09:00)
[2019-02-28] MEDS ORDERED: Lidocaine 5% Patch TD SCH (09:00)
[2019-02-28] MEDS ORDERED: Lorazepam 2 MG/ML VIAL SLOW IVP PRN (09:20)
[2019-02-28] MEDS ORDERED: Lorazepam 2 MG/ML VIAL SLOW IVP SCH (09:30)
--- NOTE | 2019-02-28 09:43 | PRG ---
DATE OF SERVICE: 02/28/2019 SUBJECTIVE: The patient is a 63-year-old female, who is known to us for prior evaluation of right parafalcine meningioma. She was recently admitted for increased headaches, nausea, and some left-sided clumsiness. She was found to have similarly size mass, but significant increase in vasogenic edema and some mass effect from the lesion on her new MRI. She has been treated with IV Decadron and she reports she is feeling much better. Her headaches and nausea have significantly improved. She reports her clumsiness seems less as well. OBJECTIVE: On exam this morning, she is awake, alert, oriented x4. Her pupils are equal and reactive. She has normal cranial nerve exam. She has free active range of motion of all extremities and no focal weakness is appreciated at this time. ASSESSMENT AND PLAN: At this point, Decadron appears to have significantly improved the patient's symptoms. I have discussed the case with Dr. Avila. He has also reviewed her imaging. We feel that she can be appropriately discharged on Decadron 2 mg p.o. t.i.d. and I have provided the script in her chart. I have also provided her a script for pain, Tylenol No. 3, nausea Zofran. I have advised her to take these medications with [id number] PPI. We will plan to arrange outpatient followup on Sunday with Dr. Avila where her and her family can discuss possible need for elective craniotomy and tumor resection. Please reach out to Neurosurgery for additional questions or concerns. Job ID: [id number]
[2019-02-28 11:32] VITALS: BP 139/81; TEMP 97.6
[2019-02-28] MEDS ORDERED: Lidocaine Patch Removal 1 EACH TOP SCH (21:00)
== END 2019-02-28 15:52 | disposition home or self-care (01) | DRG 54 ==
LOC: ERS 06:10 → SURG A 11:51
PROVIDERS: ADMIT Internal Medicine; ATTEND Internal Medicine
DX: D32.0 Benign neoplasm of cerebral meninges (principal); G93.6 Cerebral edema; E03.9 Hypothyroidism, unspecified; I10 Essential (primary) hypertension; G47.33 Obstructive sleep apnea (adult) (pediatric); J45.30 Mild persistent asthma, uncomplicated; R40.2412 Glasgow coma scale score 13-15, at arrival to emergency department; Z90.710 Acquired absence of both cervix and uterus; Z88.6 Allergy status to analgesic agent; Z88.8 Allergy status to other drugs, medicaments and biological substances; Z79.899 Other long term (current) drug therapy; Z79.890 Hormone replacement therapy; Z79.51 Long term (current) use of inhaled steroids
CPT/HCPCS: 36415; 70553; 81001; 84443; 96374; A9579; J1100; J2060; J2270

== ENCOUNTER 2019-03-12 05:52 | Inpatient (IN) | payer OTHER ==
[2019-03-12] MEDS ORDERED: Midazolam HCl 2 mg/2 ml Vial IVP SCH (07:00)
[2019-03-12] MEDS ORDERED: Acetaminophen 1,000 MG in Premix Bag 1 BAG IVPB SCH (07:00)
[2019-03-12] MEDS ORDERED: PROPOFOL 200 MG/20 ML VIAL ONE (09:41)
[2019-03-12] MEDS ORDERED: Glycopyrrolate 0.2 MG/ML 5 ML SYRINGE ONE (09:41)
[2019-03-12] MEDS ORDERED: PHENYLEPHRINE-NS 100 MCG/ML 10 ML SYRINGE ONE (09:41)
[2019-03-12] MEDS ORDERED: ePHEDrine/0.9% NaCl/PF SYRINGE 50 mg/10 ml ONE (09:41)
[2019-03-12] MEDS ORDERED: Dexamethasone 20 MG/5 ML VIAL ONE (09:41)
[2019-03-12] MEDS ORDERED: Rocuronium Bromide 10 MG/ML (10ML VIAL) ONE (09:41)
[2019-03-12] MEDS ORDERED: Ondansetron PF 4 MG/2 ML Vial ONE (09:41)
[2019-03-12] MEDS ORDERED: Lidocaine 1% PF 5 ML VIAL ONE (09:41)
--- NOTE | 2019-03-12 11:42 | OP ---
DATE OF PROCEDURE: 03/12/2019 DELIVERY ASSISTANT: Eva Osorio PA-C PROCEDURES PERFORMED: Right craniotomy and tumor resection. DESCRIPTION OF PROCEDURE: The patient was brought to the operating room and intubated. She was rolled in a prone position on gel-filled chest rolls with the head fixed in a Justyn head lineman in a neutral position. The parieto-occipital region was shaved, prepped, and draped in sterile fashion. A horseshoe-shaped incision was made from the midline towards the right and reflected inferiorly. We performed a craniotomy, which went from the midline to the right side, exposing the sagittal sinus. The dura was then opened and reflected medially. The tumor was evident and extensive edematous brain was overlying the tumor. Unfortunately, there was a large bridging cortical vein lying right over the middle of the tumor, which could not be preserved and was coagulated and divided. The specimens were sent for frozen section, suggesting meningioma. The tumor itself was extremely hard and partially calcified. We gradually debulked and removed the tumor circumferentially, ultimately achieving approximately 50% to 70% resection of tumor. We did not attempt to remove tumor in the midline or off toward the left given it is undoubtedly involvement with the sagittal sinus. Next, MAC hemostasis was secured and the brain was lined with Surgicel. The dura was reinforced with DuraGen artificial dura. The skull was replaced with titanium micro plates and screws and the wound was then closed in anatomic layers. Job ID: [id number]
[2019-03-12] MEDS ORDERED: Ondansetron PF 4 MG/2 ML Vial SLOW IVP PRN (13:15)
[2019-03-12] MEDS ORDERED: Acetaminophen 650 MG Suppository PR PRN (13:15)
[2019-03-12] MEDS ORDERED: Promethazine 25 MG TAB PO PRN (13:15)
[2019-03-12] MEDS ORDERED: Docusate 100 MG CAP PO PRN (13:15)
[2019-03-12] MEDS ORDERED: Mag-Al 1200 mg/1200 mg/30 ML UDCUP PO PRN (13:15)
[2019-03-12] MEDS ORDERED: Promethazine HCl 25 MG/ML VIAL IM PRN (13:15)
[2019-03-12] MEDS ORDERED: HYDROcodone/Acetaminophen 10/325 mg Tablet ONE (13:18)
[2019-03-12] MEDS: HYDROcodone/Acetaminophen 10/325 mg Tablet PO PRN ×3 (13:22→22:58)
[2019-03-12] MEDS: Sodium Chloride 0.9% 1,000 ML IV SCH (13:25)
[2019-03-12] MEDS ORDERED: Famotidine 40 MG/4 ML VIAL SLOW IVP SCH (13:30)
[2019-03-12] MEDS: CEFAZOLIN 2 GM in Premix Bag 1 BAG IVPB SCH ×2 (13:38→21:30)
[2019-03-12] MEDS ORDERED: Famotidine/PF 20 mg/2ml Vial SLOW IVP SCH (13:45)
[2019-03-12] MEDS: Morphine 2 MG/ML SYRINGE SLOW IVP PRN ×3 (14:01→22:30)
[2019-03-12] MEDS: Morphine 4 MG/ML VIAL SLOW IVP PRN ×2 (15:22→16:23)
[2019-03-12 15:40] LABS: Hemoglobin 14.9 g/dL (12.0-16.0); Mean Corpuscular Hemoglobin 32.5 pg (27.0-31.0); Mean Corpuscular Volume 99.4 fL (78.0-98.0); Red Blood Cell (RBC) Count 4.58 mill/uL (4.20-5.40); White Blood Cell (WBC) Count 9.5 thou/uL (4.8-10.8)
[2019-03-12 15:41] LABS: #Lymphocytes 2.1 thou/uL (1.20-3.40); #Neutrophils 6.3 thou/uL (1.40-6.50); %Basophils 0.6 % (0.0-1.0); %Eosinophils 3.1 % (0.0-10.0); %Lymphocytes 21.7 % (21.0-51.0); %Monocytes 8.4 % (0.0-10.0); %Neutrophils 66.3 % (42.0-75.0); Mean Corpuscular HGB CONC 32.7 g/dL (32.0-36.0); Mean Platelet Volume 6.9 fL (7.4-10.4); Platelet Count 358 thou/uL (130-400); RBC Distribution Width 12.4 % (11.5-14.5)
[2019-03-12 15:42] LABS: #Basophils 0.1 thou/uL (0.0-0.2); #Eosinphils 0.3 thou/uL (0.0-0.7); #Monocytes 0.8 thou/uL (0.11-0.59)
[2019-03-12 16:10] LABS: Anion Gap 11 mmol/L (10-20); BUN (Urea Nitrogen) 11 mg/dL (9.8-20.1); Calc. Creatinine Clearance 147 mL/min (70-130); Calcium 9.5 mg/dL (7.8-10.44); Carbon Dioxide 32 mmol/L (23-31); Chloride 101 mmol/L (98-107); Estimated GFR-MDRD 83; Glucose 104 mg/dL (80-115); Potassium 4.1 mmol/L (3.5-5.1); Sodium 140 mmol/L (136-145)
[2019-03-12] MEDS: diphenhydrAMINE 50 MG/ML VIAL IVP PRN ×2 (16:24→21:30)
[2019-03-12] MEDS: Famotidine/PF 20 mg/2ml Vial SLOW IVP SCH (19:40)
[2019-03-13] MEDS: Sodium Chloride 0.9% 1,000 ML IV SCH ×2 (00:48→16:31)
[2019-03-13] MEDS: diphenhydrAMINE 50 MG/ML VIAL IVP PRN ×2 (03:30→20:57)
[2019-03-13] MEDS: Morphine 4 MG/ML VIAL SLOW IVP PRN ×2 (03:30→06:35)
--- NOTE | 2019-03-13 07:19 | PRG ---
DATE OF SERVICE: 03/13/2019 The patient is postoperative day #1, status post right-sided craniotomy with tumor resection. Initial pathology as well as imaging has suggestive that this likely represents meningioma. Overnight, the patient had no events and was monitored closely in the ICU. I visited the patient this morning at the bedside and she is complaining only of a mild headache, but reports is well controlled with p.o. medications. She has no other complaints at this time and there are no other issues. On exam, the patient is awake, alert, in no acute distress. She has free active range of motion of all extremities. No focal neurologic deficits. Her pupils are equal and reactive. Her extraocular movements are intact. She has no cranial nerve deficits. Her incision is clean, dry, and intact. The patient is doing quite well, status post her right craniotomy. We will plan to remove her Peraza and begin mobilizing her with the assistance of PT and OT. I will go ahead and move her to the Med/Surg floor. Depending on her progress, I anticipate home versus rehab over the next few days. Job ID: [id number]
[2019-03-13] MEDS: HYDROcodone/Acetaminophen 10/325 mg Tablet PO PRN ×3 (07:53→19:47)
[2019-03-13] MEDS: Famotidine/PF 20 mg/2ml Vial SLOW IVP SCH ×2 (07:55→20:54)
[2019-03-13] MEDS: diphenhydrAMINE 50 MG CAP PO PRN ×2 (08:59→15:03)
[2019-03-13 11:44] VITALS: BMI 28.3
--- NOTE | 2019-03-13 21:28 | EKG ---
Test Reason : PREOP Blood Pressure : / mmHG Vent. Rate : 072 BPM Atrial Rate : 072 BPM P-R Int : 150 ms QRS Dur : 080 ms QT Int : 416 ms P-R-T Axes : 032 057 047 degrees QTc Int : 455 ms Normal sinus rhythm Nonspecific T wave abnormality Abnormal ECG When compared with ECG of 06-JUL-2018 00:27, Nonspecific T wave abnormality, improved in Inferior leads Nonspecific T wave abnormality no longer evident in Lateral leads Confirmed by Radha BOWERS ([id number]) on 03/13/2019 9:28:31 PM Referred By: WALI Confirmed By:Radha BOWERS
[2019-03-14] MEDS: Sodium Chloride 0.9% 1,000 ML IV SCH (04:43)
[2019-03-14] MEDS: HYDROcodone/Acetaminophen 10/325 mg Tablet PO PRN ×2 (04:43→20:08)
[2019-03-14] MEDS: diphenhydrAMINE 50 MG CAP PO PRN (06:29)
--- NOTE | 2019-03-14 08:51 | PRG ---
DATE OF SERVICE: 03/14/2019 SUBJECTIVE: The patient is postoperative day #2, status post right-sided craniotomy for tumor resection. Yesterday, she was transitioned to the Med/Surg floor. Her Peraza was removed. She has been tolerating a regular diet, voiding appropriately and her pain has been well controlled with p.o. medications. She has been walking short distances with her walker. She has no complaints at the bedside at this time. OBJECTIVE: GENERAL: The patient is awake, alert, in no acute distress. HEENT: Pupils are equal and reactive to light. EXTREMITIES: She has free active range of motion of all extremities. NEUROLOGIC: No focal neurologic deficits are appreciated. SKIN: Her incision is clean, dry, and intact. VITAL SIGNS: She has been afebrile overnight and her vital signs have been stable. PLAN: We will continue to monitor one additional evening on the floor. We will continue to mobilize and advance her diet appropriately. The patient is able to have a shower today. If she does well, I anticipate discharge home in the morning. Job ID: [id number]
[2019-03-14] MEDS: Famotidine/PF 20 mg/2ml Vial SLOW IVP SCH (09:30)
[2019-03-14] MEDS: Acetaminophen 325 MG TAB PO PRN ×4 (09:30→23:46)
[2019-03-14] MEDS: metroNIDAZOLE 500 MG TAB PO SCH ×2 (14:09→20:07)
[2019-03-14] MEDS: Mometasone/Formoterol 120 PUFF INHALER INH SCH (20:02)
[2019-03-14] MEDS: hydrALAZINE 20 MG/ML VIAL SLOW IVP PRN ×2 (20:06→23:49)
[2019-03-14] MEDS: Famotidine 20 MG TAB PO SCH (20:07)
[2019-03-15] MEDS: Acetaminophen 325 MG TAB PO PRN ×2 (03:23→11:09)
[2019-03-15] MEDS ORDERED: Labetalol HCl 100 MG/20 ML VIAL SLOW IVP PRN (03:42)
[2019-03-15] MEDS ORDERED: Levothyroxine 150 MCG TAB PO SCH (06:00)
[2019-03-15] MEDS: HYDROcodone/Acetaminophen 10/325 mg Tablet PO PRN (07:28)
[2019-03-15 08:03] VITALS: TEMP 98
[2019-03-15] MEDS ORDERED: Losartan/Hydrochlorothiazide 100 mg/25 mg Tablet PO SCH (09:00)
[2019-03-15] MEDS: Famotidine 20 MG TAB PO SCH (09:20)
[2019-03-15] MEDS: metroNIDAZOLE 500 MG TAB PO SCH (09:20)
[2019-03-15] MEDS: Mometasone/Formoterol 120 PUFF INHALER INH SCH (09:49)
--- NOTE | 2019-03-15 10:47 | PRG ---
DATE OF SERVICE: 03/15/2019 SUBJECTIVE: The patient is postop day #3, status post right-sided craniotomy for tumor resection. She reports her headaches are improving, but yesterday evening noticed some new visual field changes on the left. She has just notified us of this change. She denies any new weakness but reports because of this vision changes , she has had some clumsiness in her gait. OBJECTIVE: GENERAL: On exam this morning, patient is awake, alert, in no acute distress. She is oriented x3. Her pupils are equal and reactive. Extraocular movements are intact. She does have some visual field loss in the left periphery. NEUROLOGIC: No focal motor weakness is appreciated. PLAN: Discussed with Dr. Avila. Will start on decadron taper and dc to home. Job ID: [id number] [facility]
--- NOTE | 2019-03-15 11:06 | PRG ---
DATE OF SERVICE: 03/15/2019 Ms. Siu overall continues to do well. The prominence of her left visual field defect seems more prominent to her over the past 24 hours, but she had this prior to surgery and I am not surprised that it is somewhat worse. I do think she would do well with a Decadron course and we will start this for one week. We will discharge her from the hospital today and plan to see her back in 2 weeks to assess her progress, remove her skin and yohan and consider proceeding with radiosurgery. The final pathology has revealed a grade 1 meningioma. Job ID: [id number]
[2019-03-15] MEDS ORDERED: Dexamethasone 4 mg/ml Vial SLOW IVP SCH (12:00)
[2019-03-15 12:10] VITALS: BP 140/86
--- NOTE | 2019-03-16 02:57 | DIS ---
DATE OF ADMISSION: 03/12/2019 DATE OF DISCHARGE: 03/15/2019 The patient is a 63-year-old female, known to us for evaluation of a right parafalcine meningioma, who underwent a right-sided craniotomy for tumor resection on 03/12/2019. Following the surgery, she was transitioned to the ICU, where she was monitored closely. Her pain was well controlled with p.o. medications, she was tolerating a regular diet, and she was voiding appropriately. She did well in the ICU with no issues and was then transitioned to the floor. She continues to mobilize appropriately. She did develop some left-sided visual changes, which she noticed on postoperative day #3. This was treated with IV Decadron and we will plan to send her on a Decadron taper to home. She was also seen by Dr. Avila inpatient during his course and he felt that she was appropriate for discharge to home. We will follow up in 2 weeks time and we will remove the yohan at that time in the office. The patient has been provided also with scripts for Tylenol #3 for pain. I have discussed home care precautions. We will see the patient in 2 weeks. Job ID: [id number]
== END 2019-03-15 13:30 | disposition home or self-care (01) | DRG 27 ==
LOC: SURG A 05:52 → EDSTATUS 11:00 → CCU 12:50 → SURG A 03-13 10:27
PROVIDERS: ADMIT Neurological Surgery; ATTEND Neurological Surgery
PROC: 00B00ZZ Excision of Brain, Open Approach (ICD-10-PCS; principal; 2019-03-12)
DX: D32.0 Benign neoplasm of cerebral meninges (principal); H53.9 Unspecified visual disturbance
CPT/HCPCS: 80048; 85025; 86850; 86900; 86901; 88307; 88331; 88334; 88341; 88342; 88360; 93005; 93010; C1713; J0360; J0690; J1100; J1200; J2001; J2270; J2405; J2704; Q0163; S0028

== ENCOUNTER 2019-04-21 09:30 | Outpatient (CLI) | payer OTHER ==
--- NOTE | 2019-04-21 10:46 | MRI ---
Brain MRI with and without contrast: 04/21/2019 COMPARISON: 02/27/2019 HISTORY: Tumor status post resection TECHNIQUE: Multiplanar multisequence MR imaging of the brain obtained with and without contrast FINDINGS: There is evidence of interval superior posterior right-sided craniectomy and near complete tumor resection. The vasogenic edema noted on the prior examination associated with the previously noted intracranial mass lesion has resolved. Within the postoperative cavity there is a small postope rative fluid collection suggesting fluid and blood products measuring 2.4 x 3.2 cm. There is small volume subjacent subdural blood measuring less than 3 mm in AP dimension. Aside from the small volume blood products at the postoperative site, no evidence for intraparenchymal hemorrhage. The diffusion weighted imaging demonstrates no evidence for acute infarction. The axial T2-weighted imaging demonstrates no significant paranasal sinus signal abnormality. Arteria l flow voids at the axial level of the skull base appear grossly unremarkable on the T2-weighted imaging. The postcontrast imaging demonstrates residual enhancing mass along the anterior and medial aspect of the postoperative cavity. Residual enhancing tumor measures approximately 3.6 cm in AP dimension, 1.0 cm in transverse dimension, and approximately 3.2 cm in craniocaudal dimension. The postcontrast imaging appears grossly unremarkable otherwise. IMPRESSION: Postoperative changes consistent with recent tumor resection. Along the anterior and medi al aspect of the postsurgical site there is residual mass lesion as detailed above.
== END 2019-04-21 09:31 | disposition home or self-care (01) ==
LOC: MRI 09:30
PROVIDERS: ATTEND Radiology Radiation Oncology
DX: D32.0 Benign neoplasm of cerebral meninges (principal)
CPT/HCPCS: 70553; 82565

== ENCOUNTER 2019-04-24 08:51 | Outpatient (CLI) | payer OTHER ==
[2019-04-24] MEDS ORDERED: BUPIVACAINE FS SCH (09:30)
[2019-04-24] MEDS ORDERED: METHYLPREDNISOLONE ACETATE FS SCH (09:30)
[2019-04-24] MEDS ORDERED: [UNRECOGNIZED DRUG - OTHER] FS SCH (09:30)
[2019-04-24] MEDS ORDERED: LIDOCAINE 1% FS SCH (09:30)
--- NOTE | 2019-04-24 12:48 | RAD ---
Procedure: Right hip arthrogram and injection Preprocedure diagnosis: Right hip pain Driver License Agent: Melanie Anesthesia: 5 mL of buffered 1% lidocaine Contrast: 2.5 mL of iodinated contrast TECHNIQUE: Prior to the procedure, the risks and benefits of a hip arthrogram were explained to the patient elizabeth h consented fully to the procedure. Blocking Machine Tender radiographs were performed showing moderate degenerative changes. No fracture or dislocation ar e seen. A radiopaque marker was used to cristina the site of best entry into the hip joint. The shoulder was then prepped and draped in the usual sterile fashion. Lidocaine was used to anesthetize the skin and soft tissues down to the joint. A 22-gauge spinal needle was then placed using fluoroscopic guidance into the hip joint. Contrast was administered which conformed to the hip joint. A total of 2.5 mL of contrast was administered which adequately fluid throughout the hip joint. An injection consisting of 80 mg of methylprednisolo ne, 3 mL of bupivacaine and 3 mL of lidocaine was injected into the right hip. The needle was then removed. The patient tolerated the procedure well without immediate post procedure complication.
[2019-04-24] MEDS ORDERED: Iopamidol 300 61% 50 ML VIAL FS ONE (13:59)
== END 2019-04-24 08:52 | disposition home or self-care (01) ==
LOC: RAD 08:51
PROVIDERS: ATTEND Orthopaedic Surgery
DX: M16.11 Unilateral primary osteoarthritis, right hip (principal)
CPT/HCPCS: 20610; 77002; J1040; J2001; Q9967; S0020

== ENCOUNTER 2019-08-02 23:48 | Emergency (ER) | payer OTHER ==
--- NOTE | 2019-08-03 07:39 | RAD ---
RIGHT KNEE 4 VIEWS: INDICATION: Increased weakness in the right knee. COMPARISON: None. FINDINGS: There is diffuse osteopenia. No acute fracture or subluxation is evident. A small marginal osteophy te is seen involving the medial femorotibial joint compartment. No joint capsular distention is note d. IMPRESSION: No acute osseous abnormality. Mild osteoporosis right knee. POS: BH
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
--- NOTE | 2019-08-03 07:55 | ULT ---
RIGHT LOWER EXTREMITY DOPPLER VENOUS ULTRASOUND: INDICATION: Right lower extremity pain. TECHNIQUE: Andrade scale, color Doppler, and vascular duplex with spectral analysis was performed of the deep venou s structures of both lower extremities. The common femoral vein, superficial femoral vein, popliteal vein, posterior tibial vein, proximal greater saphenous, and proximal profunda veins were assessed bi laterally. FINDINGS: There is normal compression, flow, and augmentation seen within the deep venous structures of the rig ht lower extremity. IMPRESSION: No evidence of deep vein thrombosis in the right lower extremity. POS: BH
== END 2019-08-03 02:22 | disposition home or self-care (01) ==
LOC: ERS 23:48
DX: R53.1 Weakness (principal); M25.561 Pain in right knee; E03.9 Hypothyroidism, unspecified; I10 Essential (primary) hypertension; J45.909 Unspecified asthma, uncomplicated; Z79.899 Other long term (current) drug therapy
CPT/HCPCS: 70450; 94760

== ENCOUNTER 2019-08-12 10:37 | Outpatient (CLI) | payer OTHER ==
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
== END 2019-08-12 10:38 | disposition home or self-care (01) ==
LOC: BICMRI 10:37
PROVIDERS: ATTEND Orthopaedic Surgery
DX: M54.5 Low back pain (principal); M47.816 Spondylosis without myelopathy or radiculopathy, lumbar region
CPT/HCPCS: 72148

== ENCOUNTER 2020-07-06 13:54 | Outpatient (CLI) | payer BC, OTHER ==
[2020-07-06 14:19] LABS: Estimated GFR-MDRD - POC Greater than 90
== END 2020-07-06 13:55 | disposition home or self-care (01) ==
LOC: TBSIIMAG 13:54
PROVIDERS: ATTEND Neurological Surgery
DX: D33.2 Benign neoplasm of brain, unspecified (principal); Z98.890 Other specified postprocedural states
CPT/HCPCS: 70553; 82565

== ENCOUNTER 2021-10-17 12:06 | Outpatient (CLI) | payer BC, OTHER, MEDICARE ==
[2021-10-17] MEDS ORDERED: Magnevist 469MG/ML 20 ML VIAL ONE (15:56)
== END 2021-10-17 12:07 | disposition home or self-care (01) ==
LOC: TBSIIMAG 12:06
PROVIDERS: ATTEND Neurological Surgery
DX: C71.9 Malignant neoplasm of brain, unspecified (principal); Z98.890 Other specified postprocedural states
CPT/HCPCS: 70553; 82565; A9579

== ENCOUNTER 2022-05-28 10:11 | Emergency (ER) | payer BC, OTHER, MEDICARE ==
[2022-05-28] MEDS ORDERED: Ondansetron ODT 4 MG TAB ONE (12:39)
[2022-05-28] MEDS ORDERED: Fentanyl 100 MCG/2 ML VIAL ONE (12:39)
[2022-05-28] MEDS ORDERED: Morphine 4 MG/ML VIAL ONE ×2 (14:00)
== END 2022-05-28 15:10 | disposition home or self-care (01) ==
LOC: ERS 10:11
DX: S52.502A Unspecified fracture of the lower end of left radius, initial encounter for closed fracture (principal); S52.612A Displaced fracture of left ulna styloid process, initial encounter for closed fracture; E03.9 Hypothyroidism, unspecified; I10 Essential (primary) hypertension; W06.XXXA Fall from bed, initial encounter
CPT/HCPCS: 25605; 96372; J2270; J3010; Q0162

== ENCOUNTER 2022-06-01 10:04 | Outpatient (CLI) | payer BC, OTHER, MEDICARE ==
[2022-06-01 11:21] LABS: Anion Gap 15 mmol/L (10-20); BUN (Urea Nitrogen) 14 mg/dL (9.8-20.1); Calc. Creatinine Clearance 0 mL/min (70-130); Calcium 9.2 mg/dL (7.8-10.44); Carbon Dioxide 24 mmol/L (23-31); Chloride 107 mmol/L (98-107); Estimated GFR 97; Glucose 90 mg/dL (80-115); Potassium 4.2 mmol/L (3.5-5.1); Sodium 142 mmol/L (136-145)
== END 2022-06-01 10:05 | disposition home or self-care (01) ==
LOC: LABBT 10:04
PROVIDERS: ATTEND Orthopaedic Surgery
DX: Z01.818 Encounter for other preprocedural examination (principal); S52.502A Unspecified fracture of the lower end of left radius, initial encounter for closed fracture
CPT/HCPCS: 80048; 93005; 93010

== ENCOUNTER 2022-06-02 05:41 | Day surgery (SDC) | payer BC, MEDICARE, OTHER ==
[2022-06-01 12:34] VITALS: BMI 37.0
[2022-06-02] MEDS ORDERED: Bupivacaine/Epinephrine 0.25% 30 ML VIAL ONE (06:44)
[2022-06-02] MEDS ORDERED: Bupivacaine 0.25% HCL 30 ML VIAL ONE (06:44)
[2022-06-02] MEDS ORDERED: Midazolam HCl 2 mg/2 ml Vial ONE (07:00)
[2022-06-02] MEDS ORDERED: Lidocaine 1% (PF) 30 ML VIAL ONE (07:00)
[2022-06-02] MEDS ORDERED: Fentanyl 100 MCG/2 ML VIAL ONE ×2 (07:00→09:29)
[2022-06-02] MEDS ORDERED: Ropivacaine 0.5% HCl/PF (150 MG/30 ML VIAL) ONE (07:00)
[2022-06-02] MEDS ORDERED: Sodium Chloride 0.9% 100 ML ONE (07:18)
[2022-06-02] MEDS ORDERED: CEFAZOLIN 2 GM VIAL ONE (07:18)
[2022-06-02] MEDS ORDERED: Ipratropium/Albuterol 3 ML NEB ONE (07:28)
[2022-06-02] MEDS ORDERED: Dexmedetomidine 200 MCG/2 ML VIAL ONE (07:33)
[2022-06-02] MEDS ORDERED: Ondansetron PF 4 MG/2 ML Vial ONE (07:45)
[2022-06-02] MEDS ORDERED: Dexamethasone 20 MG/5 ML VIAL ONE (07:45)
[2022-06-02] MEDS ORDERED: PROPOFOL 200 MG/20 ML VIAL ONE ×2 (07:45)
[2022-06-02] MEDS ORDERED: ePHEDrine 50 MG/ML VIAL ONE (07:45)
== END 2022-06-02 10:55 | disposition home or self-care (01) ==
LOC: SDC 05:41
PROVIDERS: ATTEND Orthopaedic Surgery
PROC: 0PSJ04Z Reposition Left Radius with Internal Fixation Device, Open Approach (ICD-10-PCS; principal; 2022-06-02)
DX: S52.532A Colles' fracture of left radius, initial encounter for closed fracture (principal); E07.9 Disorder of thyroid, unspecified; I10 Essential (primary) hypertension; Z79.890 Hormone replacement therapy; Z79.899 Other long term (current) drug therapy; Z88.6 Allergy status to analgesic agent; Z88.8 Allergy status to other drugs, medicaments and biological substances; Z91.048 Other nonmedicinal substance allergy status; W18.30XA Fall on same level, unspecified, initial encounter
CPT/HCPCS: C1713; J1100; J2001; J2250; J2405; J2704; J2795; J3010; J3490; J7620; S0020

== ENCOUNTER 2024-02-04 11:26 | Outpatient (CLI) | payer BC, MEDICARE | END 2024-02-04 11:27 | disposition home or self-care (01) | LOC: SCSRAD 11:26 | PROVIDERS: ATTEND Family Medicine | DX: S60.212A Contusion of left wrist, initial encounter (principal); M25.532 Pain in left wrist; W18.30XA Fall on same level, unspecified, initial encounter ==